=== PATIENT | female | born 1955 | race Caucasian/White ===

== ENCOUNTER → 2020-12-10 11:08 | Outpatient (CLI) | payer MEDICARE, SELFPAY ==
[2020-12-10] MEDS: COVID-19 VACC, Ad26(JANSSEN)/PF 0.5 ML IM (11:17)
== END ==
PROVIDERS: Visit Provider Internal Medicine
DX: Z23 Encounter for immunization (principal)
CPT/HCPCS: 0031A; 91303

== ENCOUNTER 2023-01-25 15:22 | Emergency (ER) | payer MEDICARE, OTHER, SELFPAY ==
[2023-01-25] VITALS (94 sets, daily range): BP systolic 162–225; BP diastolic 77–126; PULSE 80–120; RESP 12–35; TEMP 36.6; O2SAT 92–98; BMI 26.6
--- NOTE | 2023-01-25 15:27 | DI.RAD.S_ITS ---
PROCEDURE: XR CHEST 1V INDICATIONS: altered mental status TECHNIQUE: One view of the chest was acquired. COMPARISON: [facility], CT, CT HEAD/BRAIN WO CON, 01/25/2023, 15:35. FINDINGS: Surgical changes and devices: None. Lungs and pleura: An incomplete inspiratory result is noted, causing a crowded appearance to the lung markings. No focal infiltrates are seen. No pneumothorax or significant pleural effusions are seen. Mediastinum: Mediastinal contours appear normal. Heart size is normal. Bones and chest wall: No suspicious bony lesions. Age-appropriate bony degenerative changes are seen. Mild levoconvex scoliotic curvature is noted. Overlying soft tissues appear unremarkable. IMPRESSION: Portable chest study within normal limits for age. Dictated by: Carlitos Gramajo M.D. on 01/25/2023 at 14:58 Approved by: Carlitos Gramajo M.D. on 01/25/2023 at 14:58
--- NOTE | 2023-01-25 15:28 | DI.CT.S_ITS ---
PROCEDURE: CT HEAD/BRAIN WO CON INDICATIONS: fall, unresponsive episode. TECHNIQUE: Noncontrast 4.5 mm thick angled axial sections acquired from the foramen magnum to the vertex, with coronal and sagittal reformats. For radiation dose reduction, the following was used: automated exposure control, adjustment of mA and/or kV according to patient size. COMPARISON: None. FINDINGS: Image quality: Excellent. CSF spaces: Basal cisterns are patent. No extra-axial fluid collections. The ventricles are symmetric in size and shape. Brain: No intracranial bleeds or masses. There is cerebral volume loss for age, with resultant ventricular and sulcal prominence. There are periventricular and deep white matter chronic small vessel ischemic changes. There is intracranial internal carotid artery atherosclerosis. Skull and face: Calvarium and visualized facial bones appear intact, without suspicious lesions. Sinuses: Visualized sinuses and mastoids are clear. IMPRESSION: No acute intracranial hemorrhage is seen. No acute intracranial process is seen. Dictated by: Carlitos Gramajo M.D. on 01/25/2023 at 14:52 Approved by: Carlitos Gramajo M.D. on 01/25/2023 at 14:52
--- NOTE | 2023-01-25 15:36 | ED_ITS ---
HPI - General Adult <Kermit Perkins DO - Last Filed: 01/26/23 07:05> General Chief complaint: Unresponsive Stated complaint: unresponsive Time Seen by Provider: 01/25/23 15:32 Source: patient, family () and EMS Mode of arrival: EMS Limitations: no limitations History of Present Illness HPI narrative: Patient is a 67-year-old female who arrives by EMS. Is reported by EMS that they were called to the patient's house by the patient's . Patient's reports that the patient was laying/sitting on the couch. He was in another room. He heard a commotion and he went into the room and found the patient ?unresponsive? he stated that her eyes were rolled back in her head and that she had agonal breathing. There was no specific signs of any trauma. He contacted EMS. By the time paramedics arrived the patient was starting to become more responsive. There was no reported any shaking activity. She was incontinent of urine. Paramedics obtained a rhythm strip which showed a narrow complex tachycardia in the 200s. This resolved on its own. Unsure as to how long this rhythm had persisted. There pre-hospital EKG was a left bundle branch block. Here in the emergency department the patient states she just felt very fatigued. She had no chest pain. No shortness of breath. No abdominal pain. No headache. No prior history of this. No prior history of seizures. She states she does not remember the event. She does not remember any prodromal symptoms. It does not appear the patient had any postictal state. Related Data Allergies Allergy/AdvReac Type Severity Reaction Status Date / Time No Known Drug Allergies Allergy Verified 01/25/23 15:34 Review of Systems <Kermit Perkins DO - Last Filed: 01/26/23 07:05> Review of Systems ROS Unobtainable: All systems reviewed & are unremarkable except as noted in HPI and below Patient History <Kermit Perkins DO - Last Filed: 01/26/23 07:05> Social History Smoking Status: Never smoker Smoking Status: Never smoker alcohol intake frequency: 3 or more drinks per day Substance Use Type: does not use Exam <Kermit Perkins DO - Last Filed: 01/26/23 07:05> Initial Vital Signs Initial Vital Signs: Vital Signs Pulse Rate 120 H 01/25/23 15:26 Pulse Oximetry 94 01/25/23 15:26 Const General: cooperative, comfortable and No ill appearing HENPA Head: normal to inspection Resp Effort & Inspection: normal respiratory effort Auscultation: clear to auscultation bilaterally Cardio Rate: tachycardic Rhythm: regular rhythm GI Inspection: normal to inspection and non-distended Palpation: soft Skin General: no rashes or lesions noted Neuro General: patient alert, patient awake, patient oriented x3 and moves all extremities Speech: speech normal Gait: normal gait Motor: muscle tone normal throughout Extrem General: normal to inspection Psych Appearance: grossly normal and well kempt <Belen Rosario MD - Last Filed: 01/26/23 05:08> Initial Vital Signs Initial Vital Signs: Vital Signs Pulse Rate 120 H 01/25/23 15:26 Pulse Oximetry 94 01/25/23 15:26 Scores <Kermit Perkins DO - Last Filed: 01/26/23 07:05> GCS Jayne coma scale eye opening: Spontaneous [place] coma scale verbal response: Orientated [place] coma scale motor response: Obey commands [place] coma scale total score: 15 <Belen Rosario MD - Last Filed: 01/26/23 05:08> GCS [place] coma scale total score: 15 Course <Kermit Perkins DO - Last Filed: 01/26/23 07:05> Orders Ordered: Discontinued Medications Carvedilol (Carvedilol 12.5 Mg Tablet) 12.5 mg PO NOW ONE Stop: 01/25/23 19:49 Last Admin: 01/25/23 19:54 Dose: 12.5 mg Documented By: MARYAN Labetalol HCl (Labetalol 20 Mg/4 Ml Syringe) 10 mg IV NOW ONE; Protocol Stop: 01/25/23 16:22 Last Admin: 01/25/23 16:30 Dose: 10 mg Documented By: JOSIAH Labetalol HCl (Labetalol 20 Mg/4 Ml Syringe) 10 mg IV NOW ONE; Protocol Stop: 01/26/23 04:59 Last Admin: 01/26/23 05:00 Dose: 10 mg Documented By: MARYAN Vital Signs Vital signs: Vital Signs - 8 hr 01/25/23 23:10 01/25/23 23:10 01/25/23 23:15 Pulse Rate 80 Respiratory Rate 16 Blood Pressure 192/85 H 201/92 H Pulse Oximetry 94 Oxygen Delivery Method 01/25/23 23:15 01/25/23 23:20 01/25/23 23:20 Pulse Rate 84 85 Respiratory Rate 17 17 Blood Pressure 186/84 H Pulse Oximetry 94 94 Oxygen Delivery Method 01/25/23 23:25 01/25/23 23:25 01/25/23 23:30 Pulse Rate 84 Respiratory Rate 13 Blood Pressure 178/78 H 180/84 H Pulse Oximetry 94 Oxygen Delivery Method 01/25/23 23:30 01/25/23 23:35 01/25/23 23:35 Pulse Rate 81 84 Respiratory Rate 12 14 Blood Pressure 184/84 H Pulse Oximetry 96 94 Oxygen Delivery Method 01/25/23 23:40 01/25/23 23:40 01/25/23 23:45 Pulse Rate 86 Respiratory Rate 14 Blood Pressure 173/78 H 170/78 H Pulse Oximetry 95 Oxygen Delivery Method 01/25/23 23:45 01/25/23 23:48 01/25/23 23:48 Pulse Rate 82 82 Respiratory Rate 16 12 Blood Pressure 174/77 H Pulse Oximetry 95 96 Oxygen Delivery Method 01/25/23 23:50 01/25/23 23:50 01/25/23 23:55 Pulse Rate 83 Respiratory Rate 12 Blood Pressure 179/81 H 174/81 H Pulse Oximetry 95 Oxygen Delivery Method 01/26/23 00:00 01/26/23 00:05 01/26/23 00:05 Pulse Rate 81 Respiratory Rate 14 Blood Pressure 167/79 H 172/78 H Pulse Oximetry 96 Oxygen Delivery Method 01/26/23 00:10 01/26/23 00:10 01/26/23 00:15 Pulse Rate 81 Respiratory Rate 14 Blood Pressure 165/77 H 169/79 H Pulse Oximetry 94 Oxygen Delivery Method 01/26/23 00:15 01/26/23 00:20 01/26/23 00:25 Pulse Rate 78 Respiratory Rate 12 Blood Pressure 167/77 H 175/79 H Pulse Oximetry 96 Oxygen Delivery Method 01/26/23 00:30 01/26/23 00:30 01/26/23 00:35 Pulse Rate 79 Respiratory Rate 13 Blood Pressure 172/72 H 169/79 H Pulse Oximetry 94 Oxygen Delivery Method 01/26/23 00:35 01/26/23 00:40 01/26/23 00:40 Pulse Rate 79 79 Respiratory Rate 14 13 Blood Pressure 173/79 H Pulse Oximetry 96 95 Oxygen Delivery Method 01/26/23 00:45 01/26/23 00:45 01/26/23 01:00 Pulse Rate 79 Respiratory Rate 18 Blood Pressure 174/78 H 160/65 H Pulse Oximetry 95 Oxygen Delivery Method 01/26/23 01:00 01/26/23 01:05 01/26/23 01:05 Pulse Rate 77 76 Respiratory Rate 12 12 Blood Pressure 163/73 H Pulse Oximetry 93 93 Oxygen Delivery Method Room Air 01/26/23 01:10 01/26/23 01:10 01/26/23 01:15 Pulse Rate 76 Respiratory Rate 14 Blood Pressure 174/77 H 171/76 H Pulse Oximetry 93 Oxygen Delivery Method 01/26/23 01:15 01/26/23 01:20 01/26/23 01:20 Pulse Rate 74 75 Respiratory Rate 11 L 15 Blood Pressure 162/76 H Pulse Oximetry 93 93 Oxygen Delivery Method 01/26/23 01:25 01/26/23 01:25 01/26/23 01:30 Pulse Rate 74 Respiratory Rate 15 Blood Pressure 168/77 H 162/70 H Pulse Oximetry 94 Oxygen Delivery Method 01/26/23 01:30 01/26/23 01:35 01/26/23 01:35 Pulse Rate 74 73 Respiratory Rate 14 15 Blood Pressure 163/76 H Pulse Oximetry 94 95 Oxygen Delivery Method 01/26/23 01:40 01/26/23 01:40 01/26/23 01:45 Pulse Rate 73 Respiratory Rate 13 Blood Pressure 164/74 H 172/75 H Pulse Oximetry 93 Oxygen Delivery Method 01/26/23 01:45 01/26/23 01:50 01/26/23 01:50 Pulse Rate 69 70 Respiratory Rate 16 15 Blood Pressure 159/69 H Pulse Oximetry 93 95 Oxygen Delivery Method 01/26/23 01:55 01/26/23 01:55 01/26/23 02:00 Pulse Rate 72 Respiratory Rate 13 Blood Pressure 153/70 H 162/72 H Pulse Oximetry 93 Oxygen Delivery Method 01/26/23 02:00 01/26/23 02:05 01/26/23 02:05 Pulse Rate 73 67 Respiratory Rate 15 17 Blood Pressure 140/68 Pulse Oximetry 93 93 Oxygen Delivery Method 01/26/23 02:10 01/26/23 02:10 01/26/23 02:15 Pulse Rate 69 Respiratory Rate 14 Blood Pressure 144/63 H 151/71 H Pulse Oximetry 93 Oxygen Delivery Method 01/26/23 02:15 01/26/23 02:20 01/26/23 02:20 Pulse Rate 72 67 Respiratory Rate 14 15 Blood Pressure 151/66 H Pulse Oximetry 92 93 Oxygen Delivery Method 01/26/23 02:25 01/26/23 02:25 01/26/23 02:30 Pulse Rate 67 Respiratory Rate 16 Blood Pressure 151/69 H 161/75 H Pulse Oximetry 93 Oxygen Delivery Method 01/26/23 02:30 01/26/23 02:35 01/26/23 02:35 Pulse Rate 72 69 Respiratory Rate 15 12 Blood Pressure 161/74 H Pulse Oximetry 94 94 Oxygen Delivery Method 01/26/23 02:40 01/26/23 02:40 01/26/23 02:45 Pulse Rate 71 Respiratory Rate 14 Blood Pressure 165/74 H 164/75 H Pulse Oximetry 93 Oxygen Delivery Method 01/26/23 02:45 01/26/23 02:50 01/26/23 02:50 Pulse Rate 69 70 Respiratory Rate 16 15 Blood Pressure 178/79 H Pulse Oximetry 94 94 Oxygen Delivery Method 01/26/23 02:55 01/26/23 02:55 01/26/23 03:00 Pulse Rate 70 Respiratory Rate 14 Blood Pressure 179/80 H 195/85 H Pulse Oximetry 93 Oxygen Delivery Method 01/26/23 03:00 01/26/23 04:26 01/26/23 04:52 Pulse Rate 71 76 Respiratory Rate 14 18 Blood Pressure 187/85 H Pulse Oximetry 94 98 Oxygen Delivery Method Room Air <Belen Rosario MD - Last Filed: 01/26/23 05:08> Orders Ordered: Discontinued Medications Carvedilol (Carvedilol 12.5 Mg Tablet) 12.5 mg PO NOW ONE Stop: 01/25/23 19:49 Last Admin: 01/25/23 19:54 Dose: 12.5 mg Documented By: MARYAN Labetalol HCl (Labetalol 20 Mg/4 Ml Syringe) 10 mg IV NOW ONE; Protocol Stop: 01/25/23 16:22 Last Admin: 01/25/23 16:30 Dose: 10 mg Documented By: JOSIAH Labetalol HCl (Labetalol 20 Mg/4 Ml Syringe) 10 mg IV NOW ONE; Protocol Stop: 01/26/23 04:59 Last Admin: 01/26/23 05:00 Dose: 10 mg Documented By: MARYAN Vital Signs Vital signs: Vital Signs - 8 hr 01/25/23 23:10 01/25/23 23:10 01/25/23 23:15 Pulse Rate 80 Respiratory Rate 16 Blood Pressure 192/85 H 201/92 H Pulse Oximetry 94 Oxygen Delivery Method 01/25/23 23:15 01/25/23 23:20 01/25/23 23:20 Pulse Rate 84 85 Respiratory Rate 17 17 Blood Pressure 186/84 H Pulse Oximetry 94 94 Oxygen Delivery Method 01/25/23 23:25 01/25/23 23:25 01/25/23 23:30 Pulse Rate 84 Respiratory Rate 13 Blood Pressure 178/78 H 180/84 H Pulse Oximetry 94 Oxygen Delivery Method 01/25/23 23:30 01/25/23 23:35 01/25/23 23:35 Pulse Rate 81 84 Respiratory Rate 12 14 Blood Pressure 184/84 H Pulse Oximetry 96 94 Oxygen Delivery Method 01/25/23 23:40 01/25/23 23:40 01/25/23 23:45 Pulse Rate 86 Respiratory Rate 14 Blood Pressure 173/78 H 170/78 H Pulse Oximetry 95 Oxygen Delivery Method 01/25/23 23:45 01/25/23 23:48 01/25/23 23:48 Pulse Rate 82 82 Respiratory Rate 16 12 Blood Pressure 174/77 H Pulse Oximetry 95 96 Oxygen Delivery Method 01/25/23 23:50 01/25/23 23:50 01/25/23 23:55 Pulse Rate 83 Respiratory Rate 12 Blood Pressure 179/81 H 174/81 H Pulse Oximetry 95 Oxygen Delivery Method 01/26/23 00:00 01/26/23 00:05 01/26/23 00:05 Pulse Rate 81 Respiratory Rate 14 Blood Pressure 167/79 H 172/78 H Pulse Oximetry 96 Oxygen Delivery Method 01/26/23 00:10 01/26/23 00:10 01/26/23 00:15 Pulse Rate 81 Respiratory Rate 14 Blood Pressure 165/77 H 169/79 H Pulse Oximetry 94 Oxygen Delivery Method 01/26/23 00:15 01/26/23 00:20 01/26/23 00:25 Pulse Rate 78 Respiratory Rate 12 Blood Pressure 167/77 H 175/79 H Pulse Oximetry 96 Oxygen Delivery Method 01/26/23 00:30 01/26/23 00:30 01/26/23 00:35 Pulse Rate 79 Respiratory Rate 13 Blood Pressure 172/72 H 169/79 H Pulse Oximetry 94 Oxygen Delivery Method 01/26/23 00:35 01/26/23 00:40 01/26/23 00:40 Pulse Rate 79 79 Respiratory Rate 14 13 Blood Pressure 173/79 H Pulse Oximetry 96 95 Oxygen Delivery Method 01/26/23 00:45 01/26/23 00:45 01/26/23 01:00 Pulse Rate 79 Respiratory Rate 18 Blood Pressure 174/78 H 160/65 H Pulse Oximetry 95 Oxygen Delivery Method 01/26/23 01:00 01/26/23 01:05 01/26/23 01:05 Pulse Rate 77 76 Respiratory Rate 12 12 Blood Pressure 163/73 H Pulse Oximetry 93 93 Oxygen Delivery Method Room Air 01/26/23 01:10 01/26/23 01:10 01/26/23 01:15 Pulse Rate 76 Respiratory Rate 14 Blood Pressure 174/77 H 171/76 H Pulse Oximetry 93 Oxygen Delivery Method 01/26/23 01:15 01/26/23 01:20 01/26/23 01:20 Pulse Rate 74 75 Respiratory Rate 11 L 15 Blood Pressure 162/76 H Pulse Oximetry 93 93 Oxygen Delivery Method 01/26/23 01:25 01/26/23 01:25 01/26/23 01:30 Pulse Rate 74 Respiratory Rate 15 Blood Pressure 168/77 H 162/70 H Pulse Oximetry 94 Oxygen Delivery Method 01/26/23 01:30 01/26/23 01:35 01/26/23 01:35 Pulse Rate 74 73 Respiratory Rate 14 15 Blood Pressure 163/76 H Pulse Oximetry 94 95 Oxygen Delivery Method 01/26/23 01:40 01/26/23 01:40 01/26/23 01:45 Pulse Rate 73 Respiratory Rate 13 Blood Pressure 164/74 H 172/75 H Pulse Oximetry 93 Oxygen Delivery Method 01/26/23 01:45 01/26/23 01:50 01/26/23 01:50 Pulse Rate 69 70 Respiratory Rate 16 15 Blood Pressure 159/69 H Pulse Oximetry 93 95 Oxygen Delivery Method 01/26/23 01:55 01/26/23 01:55 01/26/23 02:00 Pulse Rate 72 Respiratory Rate 13 Blood Pressure 153/70 H 162/72 H Pulse Oximetry 93 Oxygen Delivery Method 01/26/23 02:00 01/26/23 02:05 01/26/23 02:05 Pulse Rate 73 67 Respiratory Rate 15 17 Blood Pressure 140/68 Pulse Oximetry 93 93 Oxygen Delivery Method 01/26/23 02:10 01/26/23 02:10 01/26/23 02:15 Pulse Rate 69 Respiratory Rate 14 Blood Pressure 144/63 H 151/71 H Pulse Oximetry 93 Oxygen Delivery Method 01/26/23 02:15 01/26/23 02:20 01/26/23 02:20 Pulse Rate 72 67 Respiratory Rate 14 15 Blood Pressure 151/66 H Pulse Oximetry 92 93 Oxygen Delivery Method 01/26/23 02:25 01/26/23 02:25 01/26/23 02:30 Pulse Rate 67 Respiratory Rate 16 Blood Pressure 151/69 H 161/75 H Pulse Oximetry 93 Oxygen Delivery Method 01/26/23 02:30 01/26/23 02:35 01/26/23 02:35 Pulse Rate 72 69 Respiratory Rate 15 12 Blood Pressure 161/74 H Pulse Oximetry 94 94 Oxygen Delivery Method 01/26/23 02:40 01/26/23 02:40 01/26/23 02:45 Pulse Rate 71 Respiratory Rate 14 Blood Pressure 165/74 H 164/75 H Pulse Oximetry 93 Oxygen Delivery Method 01/26/23 02:45 01/26/23 02:50 01/26/23 02:50 Pulse Rate 69 70 Respiratory Rate 16 15 Blood Pressure 178/79 H Pulse Oximetry 94 94 Oxygen Delivery Method 01/26/23 02:55 01/26/23 02:55 01/26/23 03:00 Pulse Rate 70 Respiratory Rate 14 Blood Pressure 179/80 H 195/85 H Pulse Oximetry 93 Oxygen Delivery Method 01/26/23 03:00 01/26/23 04:26 01/26/23 04:52 Pulse Rate 71 76 Respiratory Rate 14 18 Blood Pressure 187/85 H Pulse Oximetry 94 98 Oxygen Delivery Method Room Air Medical Decision Making <Kermit Perkins DO - Last Filed: 01/26/23 07:05> Lab Data Lab results reviewed: Yes I reviewed the patient's lab results. 01/25/23 15:54 01/25/23 15:54 Labs: Lab Results 01/25/23 01/25/23 01/25/23 Range/Units 15:54 15:54 15:54 WBC 12.8 H (4.5-11.0) X10^3/uL RBC 5.37 H (4.0-5.2) X10^6/uL Hgb 15.3 (12.0-16.0) g/dL Hct 45.4 (36-46) % MCV 84.4 (80-100) fL MCH 28.4 (26-34) PG MCHC 33.6 (30-36) % RDW 14.5 (11.6-14.8) % Plt Count 362 (150-400) X10^3/uL Neut % (Auto) 38.9 L (50-75) % Lymph % (Auto) 51.9 H (25-40) % [place] % (Auto) 6.6 (3-14) % Eos % (Auto) 1.7 L (2-4) % Baso % (Auto) 0.9 (0-2) % Neut # (Auto) 5000 (0679-8655) /uL Lymph # (Auto) 6700 H (1988-9618) /uL [place] # (Auto) 800 (0-900) /uL Eos # (Auto) 200 (0-450) /uL Baso # (Auto) 100 (0-100) /uL D-Dimer (<500) ng/ml Sodium 140 (137-145) mmol/L Potassium 3.1 L (3.4-5.1) mmol/L Chloride 103 (98-107) mmol/L Carbon Dioxide 23 (22-32) mmol/L BUN 13 (7-17) mg/dL Creatinine 0.76 (0.52-1.04) mg/dL Estimated GFR > 60 (>60) mL/min BUN/Creatinine Ratio 17.1 (6-22) Glucose 116 H (80-110) mg/dL Calcium 9.5 (8.4-10.2) mg/dL Magnesium (1.6-2.3) mg/dL Total Bilirubin 0.5 (0.2-1.3) mg/dL AST 47 H (14-36) IU/L ALT 46 H (<35) IU/L Alkaline Phosphatase 95 (38-126) U/L Total Creatine Kinase 76 (30-135) U/L CK-MB (CK-2) TNP CK-MB (CK-2) Rel Index TNP Troponin I < 0.012 (0.01-0.034) ng/mL NT-Pro-B Natriuret Pep (<125) pg/mL Total Protein 9.0 H (6.3-8.2) g/dL Albumin 4.9 (3.5-5.0) g/dL Globulin 4.1 (1.7-4.1) g/dL Albumin/Globulin Ratio 1.2 (1.0-2.8) Urine RBC (0-5/HPF) Urine WBC (0-5/HPF) Ur Squamous Epith Cells (0-5/HPF) Ur Transition Epith Cell (0-5/HPF) Urine Bacteria (None) Ur Culture Indicated? U Opiates 300ng/mL cut (Negative) Ur Oxycodone Screen (Negative) Urine Methadone Screen (Negative) Ur Barbiturates Screen (Negative) U Tricyclic Antidepress (Negative) Ur Phencyclidine Scrn (Negative) Ur Amphetamines Screen (Negative) U Methamphetamines Scrn (Negative) Ur MDMA Scrn (Ecstasy) (Negative) U Benzodiazepines Scrn (Negative) Urine Cocaine Screen (Negative) U Marijuana (THC) Screen (Negative) Ethyl Alcohol ( - 10) mg/dL SARS-CoV-2 (PCR) (Negative) 01/25/23 01/25/23 01/25/23 Range/Units 15:54 15:54 15:54 WBC (4.5-11.0) X10^3/uL RBC (4.0-5.2) X10^6/uL Hgb (12.0-16.0) g/dL Hct (36-46) % MCV (80-100) fL MCH (26-34) PG MCHC (30-36) % RDW (11.6-14.8) % Plt Count (150-400) X10^3/uL Neut % (Auto) (50-75) % Lymph % (Auto) (25-40) % [place] % (Auto) (3-14) % Eos % (Auto) (2-4) % Baso % (Auto) (0-2) % Neut # (Auto) (1162-4273) /uL Lymph # (Auto) (0401-0193) /uL [place] # (Auto) (0-900) /uL Eos # (Auto) (0-450) /uL Baso # (Auto) (0-100) /uL D-Dimer 594 H (<500) ng/ml Sodium (137-145) mmol/L Potassium (3.4-5.1) mmol/L Chloride (98-107) mmol/L Carbon Dioxide (22-32) mmol/L BUN (7-17) mg/dL Creatinine (0.52-1.04) mg/dL Estimated GFR (>60) mL/min BUN/Creatinine Ratio (6-22) Glucose (80-110) mg/dL Calcium (8.4-10.2) mg/dL Magnesium 2.4 H (1.6-2.3) mg/dL Total Bilirubin (0.2-1.3) mg/dL AST (14-36) IU/L ALT (<35) IU/L Alkaline Phosphatase (38-126) U/L Total Creatine Kinase (30-135) U/L CK-MB (CK-2) CK-MB (CK-2) Rel Index Troponin I (0.01-0.034) ng/mL NT-Pro-B Natriuret Pep (<125) pg/mL Total Protein (6.3-8.2) g/dL Albumin (3.5-5.0) g/dL Globulin (1.7-4.1) g/dL Albumin/Globulin Ratio (1.0-2.8) Urine RBC (0-5/HPF) Urine WBC (0-5/HPF) Ur Squamous Epith Cells (0-5/HPF) Ur Transition Epith Cell (0-5/HPF) Urine Bacteria (None) Ur Culture Indicated? U Opiates 300ng/mL cut (Negative) Ur Oxycodone Screen (Negative) Urine Methadone Screen (Negative) Ur Barbiturates Screen (Negative) U Tricyclic Antidepress (Negative) Ur Phencyclidine Scrn (Negative) Ur Amphetamines Screen (Negative) U Methamphetamines Scrn (Negative) Ur MDMA Scrn (Ecstasy) (Negative) U Benzodiazepines Scrn (Negative) Urine Cocaine Screen (Negative) U Marijuana (THC) Screen (Negative) Ethyl Alcohol < 10 ( - 10) mg/dL SARS-CoV-2 (PCR) (Negative) 01/25/23 01/25/23 01/25/23 Range/Units 15:54 16:55 16:55 WBC (4.5-11.0) X10^3/uL RBC (4.0-5.2) X10^6/uL Hgb (12.0-16.0) g/dL Hct (36-46) % MCV (80-100) fL MCH (26-34) PG MCHC (30-36) % RDW (11.6-14.8) % Plt Count (150-400) X10^3/uL Neut % (Auto) (50-75) % Lymph % (Auto) (25-40) % [place] % (Auto) (3-14) % Eos % (Auto) (2-4) % Baso % (Auto) (0-2) % Neut # (Auto) (5827-2497) /uL Lymph # (Auto) (7224-1923) /uL [place] # (Auto) (0-900) /uL Eos # (Auto) (0-450) /uL Baso # (Auto) (0-100) /uL D-Dimer (<500) ng/ml Sodium (137-145) mmol/L Potassium (3.4-5.1) mmol/L Chloride (98-107) mmol/L Carbon Dioxide (22-32) mmol/L BUN (7-17) mg/dL Creatinine (0.52-1.04) mg/dL Estimated GFR (>60) mL/min BUN/Creatinine Ratio (6-22) Glucose (80-110) mg/dL Calcium (8.4-10.2) mg/dL Magnesium (1.6-2.3) mg/dL Total Bilirubin (0.2-1.3) mg/dL AST (14-36) IU/L ALT (<35) IU/L Alkaline Phosphatase (38-126) U/L Total Creatine Kinase (30-135) U/L CK-MB (CK-2) CK-MB (CK-2) Rel Index Troponin I (0.01-0.034) ng/mL NT-Pro-B Natriuret Pep 121 (<125) pg/mL Total Protein (6.3-8.2) g/dL Albumin (3.5-5.0) g/dL Globulin (1.7-4.1) g/dL Albumin/Globulin Ratio (1.0-2.8) Urine RBC 0-1/hpf (0-5/HPF) Urine WBC 0-1/hpf (0-5/HPF) Ur Squamous Epith Cells 0-1 /hpf (0-5/HPF) Ur Transition Epith Cell 0-1/hpf (0-5/HPF) Urine Bacteria None seen (None) Ur Culture Indicated? Cult not indicated U Opiates 300ng/mL cut Negative (Negative) Ur Oxycodone Screen Negative (Negative) Urine Methadone Screen Negative (Negative) Ur Barbiturates Screen Negative (Negative) U Tricyclic Antidepress Negative (Negative) Ur Phencyclidine Scrn Negative (Negative) Ur Amphetamines Screen Negative (Negative) U Methamphetamines Scrn Negative (Negative) Ur MDMA Scrn (Ecstasy) Negative (Negative) U Benzodiazepines Scrn Negative (Negative) Urine Cocaine Screen Negative (Negative) U Marijuana (THC) Screen Negative (Negative) Ethyl Alcohol ( - 10) mg/dL SARS-CoV-2 (PCR) (Negative) 01/25/23 Range/Units 18:20 WBC (4.5-11.0) X10^3/uL RBC (4.0-5.2) X10^6/uL Hgb (12.0-16.0) g/dL Hct (36-46) % MCV (80-100) fL MCH (26-34) PG MCHC (30-36) % RDW (11.6-14.8) % Plt Count (150-400) X10^3/uL Neut % (Auto) (50-75) % Lymph % (Auto) (25-40) % [place] % (Auto) (3-14) % Eos % (Auto) (2-4) % Baso % (Auto) (0-2) % Neut # (Auto) (0019-3296) /uL Lymph # (Auto) (7590-8932) /uL [place] # (Auto) (0-900) /uL Eos # (Auto) (0-450) /uL Baso # (Auto) (0-100) /uL D-Dimer (<500) ng/ml Sodium (137-145) mmol/L Potassium (3.4-5.1) mmol/L Chloride (98-107) mmol/L Carbon Dioxide (22-32) mmol/L BUN (7-17) mg/dL Creatinine (0.52-1.04) mg/dL Estimated GFR (>60) mL/min BUN/Creatinine Ratio (6-22) Glucose (80-110) mg/dL Calcium (8.4-10.2) mg/dL Magnesium (1.6-2.3) mg/dL Total Bilirubin (0.2-1.3) mg/dL AST (14-36) IU/L ALT (<35) IU/L Alkaline Phosphatase (38-126) U/L Total Creatine Kinase (30-135) U/L CK-MB (CK-2) CK-MB (CK-2) Rel Index Troponin I (0.01-0.034) ng/mL NT-Pro-B Natriuret Pep (<125) pg/mL Total Protein (6.3-8.2) g/dL Albumin (3.5-5.0) g/dL Globulin (1.7-4.1) g/dL Albumin/Globulin Ratio (1.0-2.8) Urine RBC (0-5/HPF) Urine WBC (0-5/HPF) Ur Squamous Epith Cells (0-5/HPF) Ur Transition Epith Cell (0-5/HPF) Urine Bacteria (None) Ur Culture Indicated? U Opiates 300ng/mL cut (Negative) Ur Oxycodone Screen (Negative) Urine Methadone Screen (Negative) Ur Barbiturates Screen (Negative) U Tricyclic Antidepress (Negative) Ur Phencyclidine Scrn (Negative) Ur Amphetamines Screen (Negative) U Methamphetamines Scrn (Negative) Ur MDMA Scrn (Ecstasy) (Negative) U Benzodiazepines Scrn (Negative) Urine Cocaine Screen (Negative) U Marijuana (THC) Screen (Negative) Ethyl Alcohol ( - 10) mg/dL SARS-CoV-2 (PCR) Negative (Negative) Point of Care Testing Glucose POC 116 Urine Dip Bedside Urine Glucose Negative Bedside Urine Bilirubin - Negative Bedside Urine Ketone +/- 5 Urine Specific [place] 1.010 Bedside Urine Occult Blood + Bedside Urine pH 6.5 Bedside Urine Protein + 30 Bedside Urine Urobilinogen - Negative Bedside Urine Nitrite - Negative Bedside Urine Leukocytes - Negative Esterase Point of care testing: Point of Care Testing Glucose POC 116 Urine Dip Bedside Urine Glucose Negative Bedside Urine Bilirubin - Negative Bedside Urine Ketone +/- 5 Urine Specific [place] 1.010 Bedside Urine Occult Blood + Bedside Urine pH 6.5 Bedside Urine Protein + 30 Bedside Urine Urobilinogen - Negative Bedside Urine Nitrite - Negative Bedside Urine Leukocytes - Negative Esterase Imaging Data Chest x-ray: Radiologist's Impression: PROCEDURE:? XR CHEST 1V ? INDICATIONS:? altered mental status ? TECHNIQUE:? One view of the chest was acquired.? ? COMPARISON:? [facility], CT, CT HEAD/BRAIN WO CON, 01/25/2023, 15:35. ? FINDINGS:? ? Surgical changes and devices:? None.? ? Lungs and pleura:? An incomplete inspiratory result is noted, causing a crowded appearance to the lung markings.? No focal infiltrates are seen.? No pneumothorax or significant pleural effusions are seen. ? ? Mediastinum:? Mediastinal contours appear normal.? Heart size is normal.? ? Bones and chest wall:? No suspicious bony lesions.? Age-appropriate bony degenerative changes are seen.? Mild levoconvex scoliotic curvature is noted.? Overlying soft tissues appear unremarkable.? ? ? IMPRESSION:? Portable chest study within normal limits for age. CT scan - head: Radiologist's Impression: PROCEDURE:? CT HEAD/BRAIN WO CON ? INDICATIONS:? fall, unresponsive episode. ? TECHNIQUE:? Noncontrast 4.5 mm thick angled axial sections acquired from the foramen magnum to the vertex, with coronal and sagittal reformats.? For radiation dose reduction, the following was used:? automated exposure control, adjustment of mA and/or kV according to patient size.? ? COMPARISON:? None. ? FINDINGS:? Image quality:? Excellent.? ? CSF spaces:? Basal cisterns are patent.? No extra-axial fluid collections.? The ventricles are symmetric in size and shape.? ? Brain:? No intracranial bleeds or masses.? There is cerebral volume loss for age, with resultant ventricular and sulcal prominence.? There are periventricular and deep white matter chronic small vessel ischemic changes.? There is intracranial internal carotid artery atherosclerosis.? ? Skull and face:? Calvarium and visualized facial bones appear intact, without suspicious lesions.? ? Sinuses:? Visualized sinuses and mastoids are clear.? ? ? IMPRESSION:? No acute intracranial hemorrhage is seen.? ? No acute intracranial process is seen.? ECG Data Interpretation: Presentation EKG Sinus tachycardia Ventricular rate 112 QRS 134 milliseconds Left axis deviation Left bundle-branch block Repeat EKG Sinus tachycardia Ventricular rate 101 Left axis deviation Left bundle-branch block MDM Narrative Medical decision making narrative: Here in the emergency department the patient was alert oriented x3 and other than being somewhat fatigued and confused about the events that brought her here to the emergency department she had no specific complaints. She was incontinent of urine however I have low suspicion for a seizure. Her stated that she did not have any shaking like activity and there did not appear to be any postictal state. Her head CT is unremarkable. No signs of any traumatic injuries. No signs of any intracranial hemorrhage. She is no chest pain no shortness of breath. Her electrolytes are unremarkable. Was tachycardic here in the emergency department and was in a left bundle-branch block and this appears to be new as there are no prior EKGs. She has no prior history of this. No prior history of arrhythmias. Patient was significantly hypertensive. I did give her a short period of time to see if this improved on its own and it did improve to a systolic in the upper 190s. I did give her a dose of labetalol which improved her blood pressure and also her heart rate. I have low suspicion for CVA/TIA. Low suspicion for seizure. Given the rhythm strip that the paramedics obtained I have a high suspicion that this was some sort of tachyarrhythmia however this does seem to have resolved. Review of the paramedics rhythm strip did show that this was a narrow complex tachycardia and now she has a left bundle-branch block. I did discuss the case with Dr. Frost on-call for hospitalist Medicine here at this hospital who recommended that I talk with Cardiology. I then discussed the case with on-call for cardiology who agreed that the patient would be best at a facility with in-house Cardiology. I did discuss the need for transfer with the patient and her at bedside. They expressed understanding and agreement. Care turned over to Dr. Rosario to continue to observe and disposition. <Belen Rosario MD - Last Filed: 01/26/23 05:08> Lab Data Labs: Lab Results 01/25/23 01/25/2323 Range/Units 15:54 15:54 15:54 WBC 12.8 H (4.5-11.0) X10^3/uL RBC 5.37 H (4.0-5.2) X10^6/uL Hgb 15.3 (12.0-16.0) g/dL Hct 45.4 (36-46) % MCV 84.4 (80-100) fL MCH 28.4 (26-34) PG MCHC 33.6 (30-36) % RDW 14.5 (11.6-14.8) % Plt Count 362 (150-400) X10^3/uL Neut % (Auto) 38.9 L (50-75) % Lymph % (Auto) 51.9 H (25-40) % [place] % (Auto) 6.6 (3-14) % Eos % (Auto) 1.7 L (2-4) % Baso % (Auto) 0.9 (0-2) % Neut # (Auto) 5000 (1066-6107) /uL Lymph # (Auto) 6700 H (2363-0111) /uL [place] # (Auto) 800 (0-900) /uL Eos # (Auto) 200 (0-450) /uL Baso # (Auto) 100 (0-100) /uL D-Dimer (<500) ng/ml Sodium 140 (137-145) mmol/L Potassium 3.1 L (3.4-5.1) mmol/L Chloride 103 (98-107) mmol/L Carbon Dioxide 23 (22-32) mmol/L BUN 13 (7-17) mg/dL Creatinine 0.76 (0.52-1.04) mg/dL Estimated GFR > 60 (>60) mL/min BUN/Creatinine Ratio 17.1 (6-22) Glucose 116 H (80-110) mg/dL Calcium 9.5 (8.4-10.2) mg/dL Magnesium (1.6-2.3) mg/dL Total Bilirubin 0.5 (0.2-1.3) mg/dL AST 47 H (14-36) IU/L ALT 46 H (<35) IU/L Alkaline Phosphatase 95 (38-126) U/L Total Creatine Kinase 76 (30-135) U/L CK-MB (CK-2) TNP CK-MB (CK-2) Rel Index TNP Troponin I < 0.012 (0.01-0.034) ng/mL NT-Pro-B Natriuret Pep (<125) pg/mL Total Protein 9.0 H (6.3-8.2) g/dL Albumin 4.9 (3.5-5.0) g/dL Globulin 4.1 (1.7-4.1) g/dL Albumin/Globulin Ratio 1.2 (1.0-2.8) Urine RBC (0-5/HPF) Urine WBC (0-5/HPF) Ur Squamous Epith Cells (0-5/HPF) Ur Transition Epith Cell (0-5/HPF) Urine Bacteria (None) Ur Culture Indicated? U Opiates 300ng/mL cut (Negative) Ur Oxycodone Screen (Negative) Urine Methadone Screen (Negative) Ur Barbiturates Screen (Negative) U Tricyclic Antidepress (Negative) Ur Phencyclidine Scrn (Negative) Ur Amphetamines Screen (Negative) U Methamphetamines Scrn (Negative) Ur MDMA Scrn (Ecstasy) (Negative) U Benzodiazepines Scrn (Negative) Urine Cocaine Screen (Negative) U Marijuana (THC) Screen (Negative) Ethyl Alcohol ( - 10) mg/dL SARS-CoV-2 (PCR) (Negative) 01/25/23 01/25/23 01/25/23 Range/Units 15:54 15:54 15:54 WBC (4.5-11.0) X10^3/uL RBC (4.0-5.2) X10^6/uL Hgb (12.0-16.0) g/dL Hct (36-46) % MCV (80-100) fL MCH (26-34) PG MCHC (30-36) % RDW (11.6-14.8) % Plt Count (150-400) X10^3/uL Neut % (Auto) (50-75) % Lymph % (Auto) (25-40) % [place] % (Auto) (3-14) % Eos % (Auto) (2-4) % Baso % (Auto) (0-2) % Neut # (Auto) (9216-2384) /uL Lymph # (Auto) (5738-4399) /uL [place] # (Auto) (0-900) /uL Eos # (Auto) (0-450) /uL Baso # (Auto) (0-100) /uL D-Dimer 594 H (<500) ng/ml Sodium (137-145) mmol/L Potassium (3.4-5.1) mmol/L Chloride (98-107) mmol/L Carbon Dioxide (22-32) mmol/L BUN (7-17) mg/dL Creatinine (0.52-1.04) mg/dL Estimated GFR (>60) mL/min BUN/Creatinine Ratio (6-22) Glucose (80-110) mg/dL Calcium (8.4-10.2) mg/dL Magnesium 2.4 H (1.6-2.3) mg/dL Total Bilirubin (0.2-1.3) mg/dL AST (14-36) IU/L ALT (<35) IU/L Alkaline Phosphatase (38-126) U/L Total Creatine Kinase (30-135) U/L CK-MB (CK-2) CK-MB (CK-2) Rel Index Troponin I (0.01-0.034) ng/mL NT-Pro-B Natriuret Pep (<125) pg/mL Total Protein (6.3-8.2) g/dL Albumin (3.5-5.0) g/dL Globulin (1.7-4.1) g/dL Albumin/Globulin Ratio (1.0-2.8) Urine RBC (0-5/HPF) Urine WBC (0-5/HPF) Ur Squamous Epith Cells (0-5/HPF) Ur Transition Epith Cell (0-5/HPF) Urine Bacteria (None) Ur Culture Indicated? U Opiates 300ng/mL cut (Negative) Ur Oxycodone Screen (Negative) Urine Methadone Screen (Negative) Ur Barbiturates Screen (Negative) U Tricyclic Antidepress (Negative) Ur Phencyclidine Scrn (Negative) Ur Amphetamines Screen (Negative) U Methamphetamines Scrn (Negative) Ur MDMA Scrn (Ecstasy) (Negative) U Benzodiazepines Scrn (Negative) Urine Cocaine Screen (Negative) U Marijuana (THC) Screen (Negative) Ethyl Alcohol < 10 ( - 10) mg/dL SARS-CoV-2 (PCR) (Negative) 01/25/23 01/25/23 01/25/23 Range/Units 15:54 16:55 16:55 WBC (4.5-11.0) X10^3/uL RBC (4.0-5.2) X10^6/uL Hgb (12.0-16.0) g/dL Hct (36-46) % MCV (80-100) fL MCH (26-34) PG MCHC (30-36) % RDW (11.6-14.8) % Plt Count (150-400) X10^3/uL Neut % (Auto) (50-75) % Lymph % (Auto) (25-40) % [place] % (Auto) (3-14) % Eos % (Auto) (2-4) % Baso % (Auto) (0-2) % Neut # (Auto) (3825-6842) /uL Lymph # (Auto) (5063-7619) /uL [place] # (Auto) (0-900) /uL Eos # (Auto) (0-450) /uL Baso # (Auto) (0-100) /uL D-Dimer (<500) ng/ml Sodium (137-145) mmol/L Potassium (3.4-5.1) mmol/L Chloride (98-107) mmol/L Carbon Dioxide (22-32) mmol/L BUN (7-17) mg/dL Creatinine (0.52-1.04) mg/dL Estimated GFR (>60) mL/min BUN/Creatinine Ratio (6-22) Glucose (80-110) mg/dL Calcium (8.4-10.2) mg/dL Magnesium (1.6-2.3) mg/dL Total Bilirubin (0.2-1.3) mg/dL AST (14-36) IU/L ALT (<35) IU/L Alkaline Phosphatase (38-126) U/L Total Creatine Kinase (30-135) U/L CK-MB (CK-2) CK-MB (CK-2) Rel Index Troponin I (0.01-0.034) ng/mL NT-Pro-B Natriuret Pep 121 (<125) pg/mL Total Protein (6.3-8.2) g/dL Albumin (3.5-5.0) g/dL Globulin (1.7-4.1) g/dL Albumin/Globulin Ratio (1.0-2.8) Urine RBC 0-1/hpf (0-5/HPF) Urine WBC 0-1/hpf (0-5/HPF) Ur Squamous Epith Cells 0-1 /hpf (0-5/HPF) Ur Transition Epith Cell 0-1/hpf (0-5/HPF) Urine Bacteria None seen (None) Ur Culture Indicated? Cult not indicated U Opiates 300ng/mL cut Negative (Negative) Ur Oxycodone Screen Negative (Negative) Urine Methadone Screen Negative (Negative) Ur Barbiturates Screen Negative (Negative) U Tricyclic Antidepress Negative (Negative) Ur Phencyclidine Scrn Negative (Negative) Ur Amphetamines Screen Negative (Negative) U Methamphetamines Scrn Negative (Negative) Ur MDMA Scrn (Ecstasy) Negative (Negative) U Benzodiazepines Scrn Negative (Negative) Urine Cocaine Screen Negative (Negative) U Marijuana (THC) Screen Negative (Negative) Ethyl Alcohol ( - 10) mg/dL SARS-CoV-2 (PCR) (Negative) 01/25/23 Range/Units 18:20 WBC (4.5-11.0) X10^3/uL RBC (4.0-5.2) X10^6/uL Hgb (12.0-16.0) g/dL Hct (36-46) % MCV (80-100) fL MCH (26-34) PG MCHC (30-36) % RDW (11.6-14.8) % Plt Count (150-400) X10^3/uL Neut % (Auto) (50-75) % Lymph % (Auto) (25-40) % [place] % (Auto) (3-14) % Eos % (Auto) (2-4) % Baso % (Auto) (0-2) % Neut # (Auto) (5458-4932) /uL Lymph # (Auto) (7520-1297) /uL [place] # (Auto) (0-900) /uL Eos # (Auto) (0-450) /uL Baso # (Auto) (0-100) /uL D-Dimer (<500) ng/ml Sodium (137-145) mmol/L Potassium (3.4-5.1) mmol/L Chloride (98-107) mmol/L Carbon Dioxide (22-32) mmol/L BUN (7-17) mg/dL Creatinine (0.52-1.04) mg/dL Estimated GFR (>60) mL/min BUN/Creatinine Ratio (6-22) Glucose (80-110) mg/dL Calcium (8.4-10.2) mg/dL Magnesium (1.6-2.3) mg/dL Total Bilirubin (0.2-1.3) mg/dL AST (14-36) IU/L ALT (<35) IU/L Alkaline Phosphatase (38-126) U/L Total Creatine Kinase (30-135) U/L CK-MB (CK-2) CK-MB (CK-2) Rel Index Troponin I (0.01-0.034) ng/mL NT-Pro-B Natriuret Pep (<125) pg/mL Total Protein (6.3-8.2) g/dL Albumin (3.5-5.0) g/dL Globulin (1.7-4.1) g/dL Albumin/Globulin Ratio (1.0-2.8) Urine RBC (0-5/HPF) Urine WBC (0-5/HPF) Ur Squamous Epith Cells (0-5/HPF) Ur Transition Epith Cell (0-5/HPF) Urine Bacteria (None) Ur Culture Indicated? U Opiates 300ng/mL cut (Negative) Ur Oxycodone Screen (Negative) Urine Methadone Screen (Negative) Ur Barbiturates Screen (Negative) U Tricyclic Antidepress (Negative) Ur Phencyclidine Scrn (Negative) Ur Amphetamines Screen (Negative) U Methamphetamines Scrn (Negative) Ur MDMA Scrn (Ecstasy) (Negative) U Benzodiazepines Scrn (Negative) Urine Cocaine Screen (Negative) U Marijuana (THC) Screen (Negative) Ethyl Alcohol ( - 10) mg/dL SARS-CoV-2 (PCR) Negative (Negative) Point of Care Testing Glucose POC 116 Urine Dip Bedside Urine Glucose Negative Bedside Urine Bilirubin - Negative Bedside Urine Ketone +/- 5 Urine Specific [place] 1.010 Bedside Urine Occult Blood + Bedside Urine pH 6.5 Bedside Urine Protein + 30 Bedside Urine Urobilinogen - Negative Bedside Urine Nitrite - Negative Bedside Urine Leukocytes - Negative Esterase Point of care testing: Point of Care Testing Glucose POC 116 Urine Dip Bedside Urine Glucose Negative Bedside Urine Bilirubin - Negative Bedside Urine Ketone +/- 5 Urine Specific [place] 1.010 Bedside Urine Occult Blood + Bedside Urine pH 6.5 Bedside Urine Protein + 30 Bedside Urine Urobilinogen - Negative Bedside Urine Nitrite - Negative Bedside Urine Leukocytes - Negative Esterase MDM Narrative Medical decision making narrative: Here in the emergency department the patient was alert oriented x3 and other than being somewhat fatigued and confused about the events that brought her here to the emergency department she had no specific complaints. She was incontinent of urine however I have low suspicion for a seizure. Her stated that she did not have any shaking like activity and there did not appear to be any postictal state. Her head CT is unremarkable. No signs of any traumatic inj uries. No signs of any intracranial hemorrhage. She is no chest pain no shortness of breath. Her electrolytes are unremarkable. Was tachycardic here in the emergency department and was in a left bundle-branch block and this appears to be new as there are no prior EKGs. She has no prior history of this. No prior history of arrhythmias. Patient was significantly hypertensive. I did give her a short period of time to see if this improved on its own and it did improve to a systolic in the upper 190s. I did give her a dose of labetalol which improved her blood pressure and also her heart rate. I have low suspicion for CVA/TIA. Low suspicion for seizure. Given the rhythm strip that the paramedics obtained I have a high suspicion that this was some sort of tachyarrhythmia however this does seem to have resolved. Review of the paramedics rhythm strip did show that this was a narrow complex tachycardia and now she has a left bundle-branch block. I did discuss the case with Dr. Frost on-call for hospitalist Medicine here at this hospital who recommended that I talk with Cardiology. I then discussed the case with on-call for cardiology who agreed that the patient would be best at a facility with in-house Cardiology. I did discuss the need for transfer with the patient and her at bedside. They expressed understanding and agreement. Care turned over to Dr. Rosario to continue to observe and disposition. 11:45pm Discussed with Dr Kingsley, hospitalist who will accept transfer 5am transport here. Elevated BP again noted. given 10mg IV labetolol prior to transfer. Discharge Plan Departure Patient Disposition: [facility] Clinical Impression: Syncope, Tachycardia, Hypertension, Left bundle branch block Stand Alone Forms: Naloxone Standing Order JOEY
[2023-01-25 16:05] LABS: Add Manual Diff / Slide Review NO; Basophils Absolute Auto 100 /uL (0-100); Basophils Percent Auto 0.9 % (0-2); Eosinophils Absolute Auto 200 /uL (0-450); Eosinophils Percent Auto 1.7 % (2-4); Hematocrit 45.4 % (36-46); Hemoglobin 15.3 g/dL (12.0-16.0); Lymphocytes Absolute Auto 6700 /uL (1100-4500); Lymphocytes Percent Auto 51.9 % (25-40); Mean Corpuscular HGB Conc 33.6 % (30-36); Mean Corpuscular Hemoglobin 28.4 PG (26-34); Mean Corpuscular Volume 84.4 fL (80-100); Monocytes Absolute Auto 800 /uL (0-900); Monocytes Percent Auto 6.6 % (3-14); Neutrophils Absolute Auto 5000 /uL (1500-7000); Neutrophils Percent Auto 38.9 % (50-75); Platelet Count 362 X10^3/uL (150-400); Red Blood Cell Count 5.37 X10^6/uL (4.0-5.2); Red Cell Distribution Width 14.5 % (11.6-14.8); White Blood Cell Count 12.8 X10^3/uL (4.5-11.0)
[2023-01-25 16:13] LABS: Ethanol (ETOH) < 10 mg/dL
[2023-01-25 16:14] LABS: Alanine Aminotransferase 46 IU/L (<35); Albumin 4.9 g/dL (3.5-5.0); Albumin Globulin Ratio 1.2 (1.0-2.8); Alkaline Phosphatase 95 U/L (38-126); Aspartate Aminotransferase 47 IU/L (14-36); BUN Creatinine Ratio 17.1 (6-22); Bilirubin Total 0.5 mg/dL (0.2-1.3); Blood Urea Nitrogen 13 mg/dL (7-17); Calcium 9.5 mg/dL (8.4-10.2); Carbon Dioxide 23 mmol/L (22-32); Chloride 103 mmol/L (98-107); Creatine Kinase 76 U/L (30-135); Estimated Glomerular Filt Rate > 60 mL/min (>60); Globulin 4.1 g/dL (1.7-4.1); Glucose 116 mg/dL (80-110); HEMOLYSIS 50 (0-50); Potassium 3.1 mmol/L (3.4-5.1); Sodium 140 mmol/L (137-145)
[2023-01-25 16:15] LABS: Magnesium 2.4 mg/dL (1.6-2.3)
[2023-01-25 16:26] LABS: Troponin I < 0.012 ng/mL (0.01-0.034)
[2023-01-25] MEDS: LABETALOL 20 MG/4 ML SYRINGE 10 MG IV (16:30)
[2023-01-25 16:37] LABS: D Dimer 594 ng/ml (<500)
[2023-01-25 16:45] LABS: NT-proBNP (BNP-Adult 18+) 121 pg/mL (<125)
[2023-01-25 17:33] LABS: Bacteria Urine None Seen; Culture Indicated Urine Cult Not Indicated; RBC Urine 0-1/HPF (0-5/HPF); Squamous Epithelial Cell Urine 0-1 /HPF (0-5/HPF); Transitional Epi Cells Urine 0-1/HPF (0-5/HPF); UR Morphine/Opiate cutoff 300 Negative (Negative); Ur Creatinine Normal (Normal); Ur Specific Gravity Normal (Normal); Urine Amphetamines Negative (Negative); Urine Barbiturates Negative (Negative); Urine Benzodiazepines Negative (Negative); Urine Cocaine Negative (Negative); Urine MDMA Negative (Negative); Urine Methadone Negative (Negative); Urine Methamphetamines Negative (Negative); Urine Oxycodone Negative (Negative); Urine Phencyclidine Negative (Negative); Urine Tetrahydrocannabinol Negative (Negative); Urine Tricyclic Antidepressant Negative (Negative); Urine pH Normal (Normal); WBC Urine 0-1/HPF (0-5/HPF)
--- NOTE | 2023-01-25 18:13 | PC.NURSE ---
Pt states she does not remember what happened this afternoon. States she remembers she was watching a underwriting assistant show in her living room and then remembers the paramedics. states he heard a crash in the living room and found her down on the floor. EMS states agonal breathing and unresponsive on arrival. Ems states extremely tachy and HTN on arrival.
[2023-01-25 18:40] LABS: COVID19 -Nasal RAPID Negative (Negative)
[2023-01-25] MEDS: carvediloL 12.5 MG TABLET PO (19:54)
[2023-01-26] VITALS (36 sets, daily range): BP systolic 140–195; BP diastolic 63–85; PULSE 67–81; RESP 11–18; O2SAT 92–98
--- NOTE | 2023-01-26 00:23 | PC.NURSE ---
Called and updated spouse about pt's transfer
[2023-01-26] MEDS: LABETALOL 20 MG/4 ML SYRINGE 10 MG IV (05:00)
== END 2023-01-26 04:52 | disposition short-term general hospital (02) ==
PROVIDERS: Emergency Provider Emergency Medicine
DX: I44.7 Left bundle-branch block, unspecified (principal); R00.0 Tachycardia, unspecified; I10 Essential (primary) hypertension; R55 Syncope and collapse; Z20.822 Contact with and (suspected) exposure to COVID-19
CPT/HCPCS: 70450; 71045; 80053; 80305; 80320; 81003; 81015; 82550; 82962; 83735; 83880; 84146; 84484; 85025; 85379; 87635; 93005; 96374; 96376; 99285; C9803